=== PATIENT | male | born 1935 | race Caucasian/White ===

== ENCOUNTER 2021-07-13 10:41 | Outpatient (CLI) | payer MEDICARE | END 2021-07-13 10:42 | disposition home or self-care (01) | LOC: MRI 10:41 | PROVIDERS: ATTEND Registered Nurse | DX: M25.552 Pain in left hip (principal); S73.192A Other sprain of left hip, initial encounter; M67.854 Other specified disorders of tendon, left hip; M71.85 Other specified bursopathies, hip; S76.012A Strain of muscle, fascia and tendon of left hip, initial encounter; M85.652 Other cyst of bone, left thigh ==

== ENCOUNTER 2021-10-24 09:11 | Outpatient (CLI) | payer MEDICARE ==
[2021-10-24 10:26] LABS: Hemoglobin 13.2 g/dL (13.5-17.5); Mean Corpuscular HGB CONC 32.5 g/dL (32.0-36.0); Mean Corpuscular Hemoglobin 29.3 pg (27.0-33.0); Mean Corpuscular Volume 90.2 fl (81.2-95.1); Mean Platelet Volume 10.8 fl (7.4-10.4); Platelet Count 194 10x3/uL (150-450)
[2021-10-24 11:04] LABS: Anion Gap 15 mmol/L (10-20); BUN (Urea Nitrogen) 35 mg/dL (8.4-25.7); Calc. Creatinine Clearance 0 mL/min (70-130); Calcium 9.5 mg/dL (7.8-10.44); Carbon Dioxide 23 mmol/L (23-31); Chloride 105 mmol/L (98-107); Estimated GFR 48; Glucose 113 mg/dL (83-110); Potassium 4.3 mmol/L (3.5-5.1); Sodium 139 mmol/L (136-145)
== END 2021-10-24 09:12 | disposition home or self-care (01) ==
LOC: LABBT 09:11
PROVIDERS: ATTEND Neurological Surgery
DX: Z01.818 Encounter for other preprocedural examination (principal); Z20.822 Contact with and (suspected) exposure to COVID-19
CPT/HCPCS: 80048; 85027; 87811; 93005; 93010

== ENCOUNTER 2021-10-29 07:47 | Observation (INO) | payer MEDICARE ==
[2021-10-29] MEDS ORDERED: fentaNYL Citrate/PF 100 MCG/2 ML SYRINGE ONE (11:31)
[2021-10-29] MEDS ORDERED: Acetaminophen 325 MG TAB ONE (11:34)
[2021-10-29] MEDS ORDERED: CEFAZOLIN 2 GM VIAL ONE (11:34)
[2021-10-29] MEDS ORDERED: Sodium Chloride 0.9% 100 ML ONE (11:34)
[2021-10-29] MEDS ORDERED: Lidocaine 1% MPF 2 ML VIAL ONE (11:48)
[2021-10-29] MEDS ORDERED: Rocuronium Bromide 10 MG/ML (10ML VIAL) ONE (11:48)
[2021-10-29] MEDS ORDERED: Dexamethasone 20 MG/5 ML VIAL ONE (11:48)
[2021-10-29] MEDS ORDERED: NEOSTIGMINE 3 MG/3 ML SYR 3 MG/3 ML SYRINGE ONE (11:48)
[2021-10-29] MEDS ORDERED: Glycopyrrolate 0.2 MG/ML 5 ML SYRINGE ONE (11:48)
[2021-10-29] MEDS ORDERED: PROPOFOL 200 MG/20 ML VIAL ONE (11:48)
[2021-10-29] MEDS ORDERED: Ondansetron PF 4 MG/2 ML Vial IVP PRN (11:59)
[2021-10-29] MEDS ORDERED: Milk Of Magnesia 30 ML UDCUP PO PRN (11:59)
[2021-10-29] MEDS ORDERED: Mag-Al 1200 mg/1200 mg/30 ML UDCUP PO PRN (11:59)
[2021-10-29] MEDS ORDERED: Morphine 2 MG/ML VIAL SLOW IVP PRN (11:59)
[2021-10-29] MEDS ORDERED: diphenhydrAMINE 25 MG CAP PO PRN (11:59)
[2021-10-29] MEDS ORDERED: Acetaminophen 325 MG TAB PO PRN (11:59)
[2021-10-29] MEDS ORDERED: Acetaminophen/Codeine 30-300mg Tablet PO PRN ×2 (11:59)
[2021-10-29] MEDS ORDERED: Cyclobenzaprine 10 MG TAB PO PRN (11:59)
[2021-10-29] MEDS ORDERED: Promethazine 25 MG TAB PO PRN (11:59)
[2021-10-29] MEDS ORDERED: Promethazine HCl 25 MG/ML VIAL IM PRN (13:19)
[2021-10-29] MEDS ORDERED: Promethazine HCl 25 MG/ML VIAL IVPB PRN (13:19)
[2021-10-29] MEDS ORDERED: Ondansetron HCl/PF 4 MG/2 ML Vial IVP PRN (13:19)
[2021-10-29 14:56] VITALS: BMI 23.3
[2021-10-29] MEDS: Sodium Chloride 0.9% 1,000 ML IV SCH (15:21)
[2021-10-29] MEDS ORDERED: CEFAZOLIN 2 GM in Sodium Chloride 0.9% 100 ML IVPB SCH (18:00)
[2021-10-29] MEDS: CEFAZOLIN 2 GM in Sodium Chloride 0.9% 100 ML IVPB SCH (20:36)
[2021-10-30] MEDS: CEFAZOLIN 2 GM in Sodium Chloride 0.9% 100 ML IVPB SCH ×3 (05:18→19:58)
[2021-10-30] MEDS: Tamsulosin HCl 0.4 MG CAP PO SCH (05:19)
[2021-10-30] MEDS: Sodium Chloride 0.9% 1,000 ML IV SCH ×2 (05:19→20:01)
[2021-10-30] MEDS: Amlodipine 10 MG TAB PO SCH (10:44)
[2021-10-30] MEDS: Losartan/Hydrochlorothiazide 100 mg/25 mg Tablet PO SCH (10:44)
[2021-10-31] MEDS: CEFAZOLIN 2 GM in Sodium Chloride 0.9% 100 ML IVPB SCH ×2 (04:42→11:17)
[2021-10-31] MEDS: Sodium Chloride 0.9% 1,000 ML IV SCH (04:47)
[2021-10-31] MEDS: Tamsulosin HCl 0.4 MG CAP PO SCH (04:47)
[2021-10-31] MEDS: Losartan/Hydrochlorothiazide 100 mg/25 mg Tablet PO SCH (09:10)
[2021-10-31] MEDS: Amlodipine 10 MG TAB PO SCH (09:10)
[2021-10-31 11:29] VITALS: BP 130/67; TEMP 98.1
== END 2021-10-31 13:44 | disposition home or self-care (01) ==
LOC: SDC 07:47 → T4-B 12:02
PROVIDERS: ADMIT Neurological Surgery; ATTEND Neurological Surgery
PROC: 01NB0ZZ Release Lumbar Nerve, Open Approach (ICD-10-PCS; principal; 2021-10-29)
DX: M48.062 Spinal stenosis, lumbar region with neurogenic claudication (principal); I10 Essential (primary) hypertension; E78.5 Hyperlipidemia, unspecified; Z79.1 Long term (current) use of non-steroidal anti-inflammatories (NSAID); Z79.82 Long term (current) use of aspirin; Z79.899 Other long term (current) drug therapy
CPT/HCPCS: 63047; 63048; 76000; 97116; C1713; J0690; J1100; J2704; J3370; J3490; J7050

== ENCOUNTER 2021-12-25 12:32 | Outpatient (CLI) | payer MEDICARE ==
[~2021-12-25 12:32] MED LIST: Magnevist 469MG/ML 20 ML VIAL ONE
== END 2021-12-25 12:33 | disposition home or self-care (01) ==
LOC: TBSIIMAG 12:32
PROVIDERS: ATTEND Registered Nurse
DX: N28.1 Cyst of kidney, acquired (principal); N32.89 Other specified disorders of bladder; K76.89 Other specified diseases of liver
CPT/HCPCS: 74183; A9579

== ENCOUNTER 2022-01-09 13:33 | Outpatient (CLI) | payer MEDICARE | END 2022-01-09 13:34 | disposition home or self-care (01) | LOC: TBSIIMAG 13:33 | PROVIDERS: ATTEND Neurological Surgery | DX: M25.572 Pain in left ankle and joints of left foot (principal); M25.872 Other specified joint disorders, left ankle and foot ==

== ENCOUNTER 2022-06-01 20:02 | Inpatient (IN) | payer MEDICARE ==
[2022-06-01] MEDS ORDERED: Cefepime 2 GM VIAL ONE (20:35)
[2022-06-01 21:22] LABS: Hemoglobin 10.1 g/dL (14.0-18.0); Mean Corpuscular Hemoglobin 29.4 pg (27.0-31.0); Mean Corpuscular Volume 84.1 fl (78.0-98.0); Mean Platelet Volume 7.4 fL (7.4-10.4); Platelet Count 330 10x3/uL (130-400); RBC Distribution Width 13.4 % (11.5-14.5); Red Blood Cell (RBC) Count 3.43 mill/uL (4.70-6.10); White Blood Cell (WBC) Count 20.1 10x3/uL (4.8-10.8)
[2022-06-01 21:23] LABS: Bacteria/HPF None Seen HPF (None Seen); Bilirubin Negative (Negative); Blood, Urine 3+ (Negative); Clarity Extra Turbid (Clear); Glucose, Urine (Dipstick) Normal (Negative); Ketone, Urine Negative (Negative); Leukocyte 500 Leu/uL (Negative); Nitrite Negative (Negative); Protein, Urine (Dipstick) 70 mg/dL (Neg-Trace); RBC/HPF Greater than 50 HPF (0-3); Specific Gravity, Urine 1.013 (1.002-1.036); Squamous Epithelial 0-3 HPF (0-3); Urobilinogen Normal mg/dL (Less than 2); WBC/HPF Greater than 50 HPF (0-3); pH, Urine 5.5 (5.0-9.0)
[2022-06-01 21:34] LABS: ALT (SGPT) 14 U/L (8-55); AST (SGOT) 16 U/L (5-34); Albumin 3.7 g/dL (3.4-4.8); Alkaline Phosphatase 87 U/L (40-110); Anion Gap 18 mmol/L (10-20); BUN (Urea Nitrogen) 52 mg/dL (8.4-25.7); Bilirubin, Total 0.4 mg/dL (0.2-1.2); Calc. Creatinine Clearance 0 mL/min (70-130); Calcium 8.9 mg/dL (7.8-10.44); Carbon Dioxide 21 mmol/L (23-31); Chloride 101 mmol/L (98-107); Estimated GFR 36; Globulin 3.2 g/dL (2.4-3.5); Glucose 118 mg/dL (83-110); Potassium 3.6 mmol/L (3.5-5.1); Protein, Total 6.9 g/dL (5.8-8.1); Sodium 136 mmol/L (136-145)
[2022-06-01 21:44] LABS: Band 2 % (5-11); Lymphocytes 4 % (21-51); MDiff Complete? YES; Monocytes 11 % (0-10); Neutrophil 83 % (42-75)
[2022-06-01] MEDS ORDERED: Ondansetron PF 4 MG/2 ML Vial ONE (23:32)
[2022-06-02] MEDS ORDERED: Ondansetron PF 4 MG/2 ML Vial IVP PRN (00:22)
[2022-06-02 01:34] LABS: #Eosinphils 0.1 thou/uL (0.0-0.7); #Lymphocytes 1.3 thou/uL (1.20-3.40); #Monocytes 1.7 thou/uL (0.11-0.59); #Neutrophils 14.9 thou/uL (1.40-6.50); %Basophils 0.2 % (0.0-1.0); %Eosinophils 0.4 % (0.0-10.0); %Lymphocytes 7.4 % (21.0-51.0); %Monocytes 9.3 % (0.0-10.0); %Neutrophils 82.6 % (42.0-75.0); Hemoglobin 10.5 g/dL (14.0-18.0); Mean Corpuscular HGB CONC 36.2 g/dL (32.0-36.0); Mean Corpuscular Hemoglobin 30.5 pg (27.0-31.0); Mean Corpuscular Volume 84.4 fl (78.0-98.0); Mean Platelet Volume 7.2 fL (7.4-10.4); Platelet Count 319 10x3/uL (130-400); RBC Distribution Width 13.4 % (11.5-14.5); Red Blood Cell (RBC) Count 3.44 mill/uL (4.70-6.10); White Blood Cell (WBC) Count 18.1 10x3/uL (4.8-10.8)
[2022-06-02 01:57] LABS: Troponin I 0.044 ng/mL (< 0.028)
[2022-06-02 02:05] LABS: Anion Gap 16 mmol/L (10-20); BUN (Urea Nitrogen) 44 mg/dL (8.4-25.7); Calc. Creatinine Clearance 0 mL/min (70-130); Calcium 8.8 mg/dL (7.8-10.44); Carbon Dioxide 17 mmol/L (23-31); Chloride 107 mmol/L (98-107); Estimated GFR 45; Glucose 144 mg/dL (83-110); Sodium 137 mmol/L (136-145)
[2022-06-02 03:01] VITALS: BMI 21.4
[2022-06-02] MEDS: cefTRIAXone\\ROCEPHIN 1 GM in Sodium Chloride 0.9% 100 ML IVPB SCH (03:05)
[2022-06-02] MEDS: Sodium Chloride 0.9% 1,000 ML IV SCH ×2 (03:07→16:25)
[2022-06-02 05:00] LABS: #Eosinphils 0.1 thou/uL (0.0-0.7); #Lymphocytes 0.9 thou/uL (1.20-3.40); #Monocytes 1.7 thou/uL (0.11-0.59); #Neutrophils 11.5 thou/uL (1.40-6.50); %Basophils 0.2 % (0.0-1.0); %Eosinophils 0.6 % (0.0-10.0); %Lymphocytes 6.6 % (21.0-51.0); %Monocytes 12.1 % (0.0-10.0); %Neutrophils 80.5 % (42.0-75.0); Hemoglobin 8.9 g/dL (14.0-18.0); Mean Corpuscular Hemoglobin 27.6 pg (27.0-31.0); Mean Corpuscular Volume 83.7 fl (78.0-98.0); Mean Platelet Volume 7.3 fL (7.4-10.4); Platelet Count 297 10x3/uL (130-400); RBC Distribution Width 13.3 % (11.5-14.5); Red Blood Cell (RBC) Count 3.21 mill/uL (4.70-6.10); White Blood Cell (WBC) Count 14.2 10x3/uL (4.8-10.8)
[2022-06-02 05:10] LABS: Anion Gap 12 mmol/L (10-20); BUN (Urea Nitrogen) 45 mg/dL (8.4-25.7); Calc. Creatinine Clearance 33 mL/min (70-130); Calcium 8.4 mg/dL (7.8-10.44); Carbon Dioxide 19 mmol/L (23-31); Chloride 108 mmol/L (98-107); Estimated GFR 47; Glucose 144 mg/dL (83-110); Potassium 3.1 mmol/L (3.5-5.1); Sodium 136 mmol/L (136-145)
[2022-06-02 05:16] LABS: Troponin I 0.058 ng/mL (< 0.028)
[2022-06-02] MEDS ORDERED: Electrolyte Replacement Protocol 1 EACH FS PRN (07:36)
[2022-06-02] MEDS ORDERED: Electrolyte Replacement Protocol FS PRN (08:00)
[2022-06-02] MEDS ORDERED: Potassium Chloride 20 MEQ TAB PO SCH (08:00)
[2022-06-02] MEDS ORDERED: Metoprolol Tartrate 25 MG TAB PO SCH (09:00)
[2022-06-02 12:35] LABS: Potassium 4.1 mmol/L (3.5-5.1)
[2022-06-02 16:22] LABS: Magnesium 1.9 mg/dL (1.6-2.6); Phosphorus 3.3 mg/dL (2.3-4.7)
[2022-06-02] MEDS: Simvastatin 5 MG TAB PO SCH (20:42)
[2022-06-02] MEDS ORDERED: Magnesium 2 GM/50 ML(in water) 2 GM in Premix Bag 1 BAG IVPB SCH (22:00)
[2022-06-03] MEDS: cefTRIAXone\\ROCEPHIN 1 GM in Sodium Chloride 0.9% 100 ML IVPB SCH (00:11)
[2022-06-03 04:51] LABS: #Eosinphils 0.2 thou/uL (0.0-0.7); #Lymphocytes 1.1 thou/uL (1.20-3.40); #Monocytes 1.3 thou/uL (0.11-0.59); #Neutrophils 7.4 thou/uL (1.40-6.50); %Basophils 0.1 % (0.0-1.0); %Eosinophils 1.7 % (0.0-10.0); %Lymphocytes 11.1 % (21.0-51.0); %Monocytes 13.2 % (0.0-10.0); %Neutrophils 73.9 % (42.0-75.0); Hemoglobin 8.5 g/dL (14.0-18.0); Mean Corpuscular HGB CONC 31.7 g/dL (32.0-36.0); Mean Corpuscular Hemoglobin 26.6 pg (27.0-31.0); Mean Platelet Volume 7.4 fL (7.4-10.4); Platelet Count 312 10x3/uL (130-400); RBC Distribution Width 13.3 % (11.5-14.5); Red Blood Cell (RBC) Count 3.18 mill/uL (4.70-6.10)
[2022-06-03 05:07] LABS: ALT (SGPT) 14 U/L (8-55); AST (SGOT) 13 U/L (5-34); Albumin 2.8 g/dL (3.4-4.8); Alkaline Phosphatase 65 U/L (40-110); Anion Gap 13 mmol/L (10-20); BUN (Urea Nitrogen) 30 mg/dL (8.4-25.7); Bilirubin, Total 0.2 mg/dL (0.2-1.2); Calc. Creatinine Clearance 37 mL/min (70-130); Calcium 8.6 mg/dL (7.8-10.44); Carbon Dioxide 21 mmol/L (23-31); Chloride 110 mmol/L (98-107); Estimated GFR 55; Globulin 3.2 g/dL (2.4-3.5); Glucose 105 mg/dL (83-110); Sodium 140 mmol/L (136-145)
[2022-06-03] MEDS: Sodium Chloride 0.9% 1,000 ML IV SCH ×2 (06:26→19:00)
[2022-06-03 08:59] LABS: Troponin I 0.033 ng/mL (< 0.028)
[2022-06-03] MEDS ORDERED: Amlodipine 10 MG TAB PO SCH (09:00)
[2022-06-03] MEDS ORDERED: Losartan/Hydrochlorothiazide 100 mg/25 mg Tablet PO SCH (09:00)
[2022-06-03] MEDS: Apixaban 5 MG TAB PO SCH ×2 (09:01→20:30)
[2022-06-03] MEDS: Simvastatin 5 MG TAB PO SCH (20:30)
[2022-06-04] MEDS: cefTRIAXone\\ROCEPHIN 1 GM in Sodium Chloride 0.9% 100 ML IVPB SCH (00:48)
[2022-06-04 08:07] LABS: #Eosinphils 0.2 thou/uL (0.0-0.7); #Lymphocytes 1.2 thou/uL (1.20-3.40); #Monocytes 0.9 thou/uL (0.11-0.59); #Neutrophils 6.2 thou/uL (1.40-6.50); %Basophils 0.4 % (0.0-1.0); %Eosinophils 2.3 % (0.0-10.0); %Lymphocytes 14.2 % (21.0-51.0); %Monocytes 10.3 % (0.0-10.0); %Neutrophils 72.7 % (42.0-75.0); Hemoglobin 8.4 g/dL (14.0-18.0); Mean Corpuscular HGB CONC 31.7 g/dL (32.0-36.0); Mean Corpuscular Volume 85.1 fl (78.0-98.0); Mean Platelet Volume 6.9 fL (7.4-10.4); Platelet Count 337 10x3/uL (130-400); RBC Distribution Width 13.3 % (11.5-14.5); Red Blood Cell (RBC) Count 3.12 mill/uL (4.70-6.10); White Blood Cell (WBC) Count 8.5 10x3/uL (4.8-10.8)
[2022-06-04 08:34] LABS: ALT (SGPT) 14 U/L (8-55); AST (SGOT) 12 U/L (5-34); Albumin 2.8 g/dL (3.4-4.8); Alkaline Phosphatase 67 U/L (40-110); Anion Gap 12 mmol/L (10-20); BUN (Urea Nitrogen) 19 mg/dL (8.4-25.7); Bilirubin, Total 0.2 mg/dL (0.2-1.2); Calc. Creatinine Clearance 46 mL/min (70-130); Calcium 8.5 mg/dL (7.8-10.44); Carbon Dioxide 20 mmol/L (23-31); Chloride 110 mmol/L (98-107); Estimated GFR 70; Globulin 3.1 g/dL (2.4-3.5); Glucose 94 mg/dL (83-110); Protein, Total 5.9 g/dL (5.8-8.1); Sodium 138 mmol/L (136-145)
[2022-06-04] MEDS: Sodium Chloride 0.9% 1,000 ML IV SCH (10:11)
[2022-06-04] MEDS: Apixaban 5 MG TAB PO SCH ×2 (10:11→20:31)
[2022-06-04 13:49] LABS: Bacteria/HPF 2+ HPF (None Seen); Bilirubin Negative (Negative); Blood, Urine 3+ (Negative); Glucose, Urine (Dipstick) Normal (Negative); Ketone, Urine Negative (Negative); Leukocyte 500 Leu/uL (Negative); Nitrite Negative (Negative); Protein, Urine (Dipstick) 100 mg/dL (Neg-Trace); RBC/HPF Greater than 50 HPF (0-3); Specific Gravity, Urine 1.009 (1.002-1.036); Squamous Epithelial None Seen HPF (0-3); Urobilinogen Normal mg/dL (Less than 2); WBC/HPF Greater than 50 HPF (0-3)
[2022-06-04 13:50] LABS: Clarity Turbid (Clear)
[2022-06-04] MEDS ORDERED: hydrALAZINE 20 MG/ML VIAL SLOW IVP PRN (14:04)
[2022-06-04] MEDS ORDERED: Vancomycin 1 GM in Premix Bag 1 BAG IVPB SCH (15:00)
[2022-06-04] MEDS: Metoprolol Tartrate 25 MG TAB PO SCH (20:31)
[2022-06-04] MEDS: Simvastatin 5 MG TAB PO SCH (20:32)
[2022-06-04] MEDS ORDERED: cefTRIAXone\\ROCEPHIN 1 GM in Sodium Chloride 0.9% 100 ML IVPB SCH (23:59)
[2022-06-05] MEDS: Sodium Chloride 0.9% 1,000 ML IV SCH ×3 (00:30→15:27)
[2022-06-05 04:58] LABS: #Basophils 0.1 thou/uL (0.0-0.2); #Eosinphils 0.3 thou/uL (0.0-0.7); #Lymphocytes 1.3 thou/uL (1.20-3.40); #Monocytes 0.9 thou/uL (0.11-0.59); #Neutrophils 5.7 thou/uL (1.40-6.50); %Basophils 0.7 % (0.0-1.0); %Eosinophils 3.2 % (0.0-10.0); %Lymphocytes 15.3 % (21.0-51.0); %Monocytes 11.2 % (0.0-10.0); %Neutrophils 69.5 % (42.0-75.0); Hemoglobin 8.3 g/dL (14.0-18.0); Mean Corpuscular HGB CONC 32.1 g/dL (32.0-36.0); Mean Corpuscular Hemoglobin 27.2 pg (27.0-31.0); Mean Corpuscular Volume 84.7 fl (78.0-98.0); Mean Platelet Volume 7.1 fL (7.4-10.4); Platelet Count 327 10x3/uL (130-400); RBC Distribution Width 13.5 % (11.5-14.5); Red Blood Cell (RBC) Count 3.03 mill/uL (4.70-6.10); White Blood Cell (WBC) Count 8.2 10x3/uL (4.8-10.8)
[2022-06-05 05:19] LABS: ALT (SGPT) 14 U/L (8-55); AST (SGOT) 14 U/L (5-34); Albumin 2.8 g/dL (3.4-4.8); Alkaline Phosphatase 62 U/L (40-110); Anion Gap 12 mmol/L (10-20); BUN (Urea Nitrogen) 16 mg/dL (8.4-25.7); Bilirubin, Total 0.2 mg/dL (0.2-1.2); Calc. Creatinine Clearance 47 mL/min (70-130); Calcium 8.4 mg/dL (7.8-10.44); Carbon Dioxide 22 mmol/L (23-31); Chloride 110 mmol/L (98-107); Estimated GFR 74; Glucose 96 mg/dL (83-110); Potassium 3.8 mmol/L (3.5-5.1); Protein, Total 5.8 g/dL (5.8-8.1); Sodium 140 mmol/L (136-145)
[2022-06-05] MEDS ORDERED: Amlodipine 10 MG TAB PO SCH (09:00)
[2022-06-05] MEDS: Apixaban 5 MG TAB PO SCH ×2 (10:49→22:16)
[2022-06-05] MEDS: Metoprolol Tartrate 25 MG TAB PO SCH ×2 (10:50→22:16)
[2022-06-05] MEDS ORDERED: Metoprolol Tartrate 25 MG TAB PO SCH ×2 (12:50→13:00)
[2022-06-05] MEDS: AMOXicillin 250 MG CAP PO SCH ×2 (15:07→22:17)
[2022-06-05] MEDS: Simvastatin 5 MG TAB PO SCH (22:16)
[2022-06-06] MEDS: Metoprolol Tartrate 25 MG TAB PO SCH ×2 (08:55→20:47)
[2022-06-06] MEDS: AMOXicillin 250 MG CAP PO SCH ×3 (08:55→20:47)
[2022-06-06] MEDS: Apixaban 5 MG TAB PO SCH ×2 (08:55→20:46)
[2022-06-06] MEDS ORDERED: Bisacodyl 10 MG SUPP PR SCH (11:54)
[2022-06-06] MEDS: Sodium Chloride 0.9% 1,000 ML IV SCH (13:40)
[2022-06-06] MEDS: Simvastatin 5 MG TAB PO SCH (20:47)
[2022-06-07] MEDS: Apixaban 5 MG TAB PO SCH (09:43)
[2022-06-07] MEDS: AMOXicillin 250 MG CAP PO SCH (09:43)
[2022-06-07] MEDS: Metoprolol Tartrate 25 MG TAB PO SCH (09:43)
[2022-06-07 12:33] VITALS: BP 138/61; TEMP 97.8
== END 2022-06-07 13:00 | disposition home or self-care (01) | DRG 872 ==
LOC: ERS 20:02 → 2NO 06-02 02:08
PROVIDERS: ADMIT Hospitalist; ATTEND Internal Medicine
DX: A41.81 Sepsis due to Enterococcus (principal); N30.00 Acute cystitis without hematuria; I48.19 Other persistent atrial fibrillation; N40.0 Benign prostatic hyperplasia without lower urinary tract symptoms; I10 Essential (primary) hypertension; K59.00 Constipation, unspecified; Z79.899 Other long term (current) drug therapy; Z85.46 Personal history of malignant neoplasm of prostate
CPT/HCPCS: 36415; 36416; 51701; 74176; 76705; 80048; 80053; 81003; 81015; 82105; 82378; 83605; 83735; 83880; 84100; 84443; 84484; 85025; 87040; 87086; 93005; 93306; 96365; J0692; J0696; J2405; J3370-JW; J3475; J3490; J7050

== ENCOUNTER 2022-09-05 10:20 | Inpatient (IN) | payer MEDICARE ==
[2022-09-05 10:58] LABS: #Basophils 0.1 thou/uL (0.0-0.2); #Eosinphils 0.1 thou/uL (0.0-0.7); #Monocytes 1.1 thou/uL (0.11-0.59); #Neutrophils 9.9 thou/uL (1.40-6.50); %Basophils 0.4 % (0.0-1.0); %Eosinophils 0.5 % (0.0-10.0); %Lymphocytes 10.8 % (21.0-51.0); %Monocytes 8.7 % (0.0-10.0); %Neutrophils 77.6 % (42.0-75.0); Hemoglobin 8.6 g/dL (14.0-18.0); Mean Corpuscular HGB CONC 31.4 g/dL (32.0-36.0); Mean Corpuscular Hemoglobin 23.8 pg (27.0-31.0); Mean Corpuscular Volume 75.7 fl (78.0-98.0); Mean Platelet Volume 8.4 fL (7.4-10.4); Platelet Count 566 10x3/uL (130-400); RBC Distribution Width 17.4 % (11.5-14.5); Red Blood Cell (RBC) Count 3.62 mill/uL (4.70-6.10); White Blood Cell (WBC) Count 12.8 10x3/uL (4.8-10.8)
[2022-09-05 11:31] LABS: ALT (SGPT) 27 U/L (8-55); AST (SGOT) 25 U/L (5-34); Albumin 3.3 g/dL (3.4-4.8); Alkaline Phosphatase 101 U/L (40-110); Anion Gap 19 mmol/L (10-20); BUN (Urea Nitrogen) 55 mg/dL (8.4-25.7); Bilirubin, Total 0.3 mg/dL (0.2-1.2); Calc. Creatinine Clearance 0 mL/min (70-130); Calcium 9.8 mg/dL (7.8-10.44); Carbon Dioxide 21 mmol/L (23-31); Chloride 100 mmol/L (98-107); Estimated GFR 35; Globulin 4.7 g/dL (2.4-3.5); Glucose 116 mg/dL (83-110); Lipase 24 U/L (8-78); Potassium 4.7 mmol/L (3.5-5.1); Sodium 135 mmol/L (136-145)
[2022-09-05 11:48] LABS: CKMB 2.4 ng/mL (0-6.6)
[2022-09-05] MEDS ORDERED: Morphine 4 MG/ML VIAL ONE (13:25)
[2022-09-05 13:40] LABS: Bacteria/HPF 4+ HPF (None Seen); Bilirubin Negative (Negative); Blood, Urine Trace (Negative); CAUTI Indications for Culture Urological Procedure; Clarity Turbid (Clear); Glucose, Urine (Dipstick) Normal (Negative); Ketone, Urine Negative (Negative); Leukocyte 500 Leu/uL (Negative); Nitrite Negative (Negative); Protein, Urine (Dipstick) 30 mg/dL (Neg-Trace); RBC/HPF 0-3 HPF (0-3); Specific Gravity, Urine 1.016 (1.002-1.036); Squamous Epithelial 0-3 HPF (0-3); Urobilinogen Normal mg/dL (Less than 2); WBC/HPF Greater than 50 HPF (0-3)
[2022-09-05 13:42] LABS: Urine Culture Reflex Yes Yes
[2022-09-05] MEDS ORDERED: Oxymetazoline HCl 0.05% (30 ML BOT) ONE (14:18)
[2022-09-05] MEDS ORDERED: Iopamidol-370 76% 500 ML MDV (1 ML CHARGE) ONE (15:12)
[2022-09-05] MEDS ORDERED: Ondansetron PF 4 MG/2 ML Vial IVP PRN (16:22)
[2022-09-05] MEDS ORDERED: Acetaminophen 325 MG TAB PO PRN (16:22)
[2022-09-05 16:46] LABS: Troponin I 0.014 ng/mL (< 0.028)
[2022-09-05] MEDS: cefTRIAXone\\ROCEPHIN 1 GM in Sodium Chloride 0.9% 100 ML IVPB SCH (19:19)
[2022-09-05] MEDS: Sodium Chloride 0.9% 1,000 ML IV SCH (19:20)
[2022-09-05 19:39] LABS: Troponin I 0.036 ng/mL (< 0.028)
[2022-09-05] MEDS: Fish Oil 1,000 MG CAP PO SCH (20:29)
[2022-09-05] MEDS: Simvastatin 5 MG TAB PO SCH (20:29)
[2022-09-05 23:51] LABS: Troponin I 0.043 ng/mL (< 0.028)
[2022-09-06 04:46] LABS: #Eosinphils 0.1 thou/uL (0.0-0.7); #Monocytes 1.2 thou/uL (0.11-0.59); #Neutrophils 9.2 thou/uL (1.40-6.50); %Basophils 0.3 % (0.0-1.0); %Eosinophils 0.9 % (0.0-10.0); %Lymphocytes 7.8 % (21.0-51.0); %Monocytes 10.2 % (0.0-10.0); %Neutrophils 79.5 % (42.0-75.0); Hemoglobin 7.5 g/dL (14.0-18.0); Mean Corpuscular HGB CONC 30.1 g/dL (32.0-36.0); Mean Corpuscular Hemoglobin 23.4 pg (27.0-31.0); Mean Corpuscular Volume 77.8 fl (78.0-98.0); Mean Platelet Volume 8.4 fL (7.4-10.4); Platelet Count 469 10x3/uL (130-400); RBC Distribution Width 17.7 % (11.5-14.5); White Blood Cell (WBC) Count 11.6 10x3/uL (4.8-10.8)
[2022-09-06 05:13] LABS: ALT (SGPT) 18 U/L (8-55); AST (SGOT) 16 U/L (5-34); Albumin 2.7 g/dL (3.4-4.8); Alkaline Phosphatase 80 U/L (40-110); Anion Gap 12 mmol/L (10-20); BUN (Urea Nitrogen) 38 mg/dL (8.4-25.7); Bilirubin, Total 0.2 mg/dL (0.2-1.2); Calc. Creatinine Clearance 0 mL/min (70-130); Calcium 8.9 mg/dL (7.8-10.44); Carbon Dioxide 22 mmol/L (23-31); Cardiac Risk 4.5 (Less than 4.5); Chloride 106 mmol/L (98-107); Cholesterol 113 mg/dl (< 200 Desired); Estimated GFR 56; Globulin 3.8 g/dL (2.4-3.5); Glucose 107 mg/dL (83-110); HDL Cholesterol 25 mg/dL (>60 Neg Risk); LDL Cholesterol, Calculated 72 mg/dL; Potassium 4.5 mmol/L (3.5-5.1); Protein, Total 6.5 g/dL (5.8-8.1); Sodium 135 mmol/L (136-145); Triglycerides 79 mg/dL (Less than 150)
[2022-09-06 05:18] LABS: Troponin I 0.036 ng/mL (< 0.028)
[2022-09-06 05:33] LABS: Free T4 (Free Thyroxine) 1.18 ng/dL (0.70-1.48); Thyroid Stimulating Hormone 0.8255 uIU/mL (0.35-4.94)
[2022-09-06] MEDS: Sodium Chloride 0.9% 1,000 ML IV SCH ×2 (06:44→23:27)
[2022-09-06] MEDS ORDERED: Amlodipine 10 MG TAB PO SCH (09:00)
[2022-09-06] MEDS: Aspirin 81 mg Enteric Coated Tablet PO SCH (09:06)
[2022-09-06] MEDS: Fish Oil 1,000 MG CAP PO SCH ×2 (09:08→19:49)
[2022-09-06] MEDS: Cholecalciferol 1,000 UNITS (25 MCG) TAB PO SCH (09:08)
[2022-09-06] MEDS ORDERED: Vasopressin 20 UNITS/ML VIAL ONE (11:45)
[2022-09-06] MEDS ORDERED: PROPOFOL 200 MG/20 ML VIAL ONE (12:01)
[2022-09-06] MEDS ORDERED: PHENYLEPHRINE-NS 100 MCG/ML 10 ML SYRINGE ONE (12:01)
[2022-09-06] MEDS ORDERED: Lidocaine 1% PF 5 ML VIAL ONE (12:01)
[2022-09-06 13:46] LABS: Iron 16 ug/dL (65-175); Iron Binding Capacity, Total 176 mcg/dL (261-462)
[2022-09-06] MEDS: cefTRIAXone\\ROCEPHIN 1 GM in Sodium Chloride 0.9% 100 ML IVPB SCH (16:24)
[2022-09-06] MEDS: Amlodipine 5 MG TAB PO SCH (19:48)
[2022-09-06] MEDS: Simvastatin 5 MG TAB PO SCH (19:49)
[2022-09-07 04:18] LABS: #Eosinphils 0.2 thou/uL (0.0-0.7); #Monocytes 0.9 thou/uL (0.11-0.59); #Neutrophils 6.2 thou/uL (1.40-6.50); %Basophils 0.4 % (0.0-1.0); %Eosinophils 1.9 % (0.0-10.0); %Lymphocytes 16.3 % (21.0-51.0); %Monocytes 10.6 % (0.0-10.0); %Neutrophils 69.5 % (42.0-75.0); Hemoglobin 7.3 g/dL (14.0-18.0); Mean Corpuscular Hemoglobin 23.3 pg (27.0-31.0); Mean Corpuscular Volume 77.6 fl (78.0-98.0); Mean Platelet Volume 8.1 fL (7.4-10.4); Platelet Count 398 10x3/uL (130-400); RBC Distribution Width 17.5 % (11.5-14.5); Red Blood Cell (RBC) Count 3.13 mill/uL (4.70-6.10); White Blood Cell (WBC) Count 8.9 10x3/uL (4.8-10.8)
[2022-09-07 04:53] LABS: ALT (SGPT) 16 U/L (8-55); AST (SGOT) 13 U/L (5-34); Albumin 2.7 g/dL (3.4-4.8); Alkaline Phosphatase 77 U/L (40-110); Anion Gap 10 mmol/L (10-20); BUN (Urea Nitrogen) 22 mg/dL (8.4-25.7); Bilirubin, Total 0.2 mg/dL (0.2-1.2); Calc. Creatinine Clearance 39 mL/min (70-130); Calcium 8.8 mg/dL (7.8-10.44); Carbon Dioxide 24 mmol/L (23-31); Chloride 108 mmol/L (98-107); Estimated GFR 64; Globulin 3.7 g/dL (2.4-3.5); Glucose 95 mg/dL (83-110); Potassium 4.4 mmol/L (3.5-5.1); Protein, Total 6.4 g/dL (5.8-8.1); Sodium 138 mmol/L (136-145)
[2022-09-07] MEDS: Aspirin 81 mg Enteric Coated Tablet PO SCH (08:01)
[2022-09-07] MEDS: Sodium Chloride 0.9% 1,000 ML IV SCH (08:01)
[2022-09-07] MEDS: Cholecalciferol 1,000 UNITS (25 MCG) TAB PO SCH (08:02)
[2022-09-07] MEDS: Fish Oil 1,000 MG CAP PO SCH ×2 (08:02→20:20)
[2022-09-07] MEDS ORDERED: IRON SUCROSE COMPLEX 100 MG/5 ML SLOW IVP SCH (08:30)
[2022-09-07] MEDS ORDERED: Sodium Ferric Gluconate 62.5 MG/5 ML AMP SLOW IVP SCH (09:15)
[2022-09-07] MEDS: Docusate 100 MG CAP PO SCH ×2 (11:14→20:20)
[2022-09-07] MEDS: Ciprofloxacin 500 MG TAB PO SCH (20:19)
[2022-09-07] MEDS: Simvastatin 5 MG TAB PO SCH (20:19)
[2022-09-07] MEDS: Amlodipine 5 MG TAB PO SCH (20:19)
[2022-09-08 04:39] LABS: Hemoglobin 7.3 g/dL (14.0-18.0); Mean Corpuscular HGB CONC 30.3 g/dL (32.0-36.0); Mean Corpuscular Hemoglobin 23.6 pg (27.0-31.0); Mean Platelet Volume 8.4 fL (7.4-10.4); Platelet Count 414 10x3/uL (130-400); RBC Distribution Width 17.6 % (11.5-14.5); Red Blood Cell (RBC) Count 3.09 mill/uL (4.70-6.10)
[2022-09-08] MEDS: Ciprofloxacin 500 MG TAB PO SCH (05:57)
[2022-09-08] MEDS ORDERED: Ferrous Gluconate 324 MG TAB PO SCH (08:00)
[2022-09-08] MEDS: Aspirin 81 mg Enteric Coated Tablet PO SCH (08:33)
[2022-09-08] MEDS: Cholecalciferol 1,000 UNITS (25 MCG) TAB PO SCH (08:33)
[2022-09-08] MEDS: Docusate 100 MG CAP PO SCH (08:33)
[2022-09-08] MEDS: Fish Oil 1,000 MG CAP PO SCH (08:34)
[2022-09-08 11:09] VITALS: BP 116/60; TEMP 97.8
== END 2022-09-08 12:05 | disposition home or self-care (01) | DRG 391 ==
LOC: ERS 10:20 → 2SW 17:25 → OBSVTOIN 09-06 07:58
PROVIDERS: ADMIT Internal Medicine Geriatric Medicine; ATTEND Family Medicine
PROC: 0DB98ZX Excision of Duodenum, Via Natural or Artificial Opening Endoscopic, Diagnostic (ICD-10-PCS; principal; 2022-09-06)
PROC: 0DB38ZX Excision of Lower Esophagus, Via Natural or Artificial Opening Endoscopic, Diagnostic (ICD-10-PCS; 2022-09-06)
PROC: 0D718ZZ Dilation of Upper Esophagus, Via Natural or Artificial Opening Endoscopic (ICD-10-PCS; 2022-09-06)
DX: R13.14 Dysphagia, pharyngoesophageal phase (principal); I21.A1 Myocardial infarction type 2; E44.0 Moderate protein-calorie malnutrition; N17.9 Acute kidney failure, unspecified; Z68.1 Body mass index [BMI] 19.9 or less, adult; E87.1 Hypo-osmolality and hyponatremia; N30.00 Acute cystitis without hematuria; E04.2 Nontoxic multinodular goiter; N40.0 Benign prostatic hyperplasia without lower urinary tract symptoms; I10 Essential (primary) hypertension; R77.8 Other specified abnormalities of plasma proteins; R63.4 Abnormal weight loss; R63.0 Anorexia; D50.9 Iron deficiency anemia, unspecified; N28.89 Other specified disorders of kidney and ureter; F41.9 Anxiety disorder, unspecified; B95.2 Enterococcus as the cause of diseases classified elsewhere; F32.9 Major depressive disorder, single episode, unspecified; I45.10 Unspecified right bundle-branch block; I95.9 Hypotension, unspecified; N28.1 Cyst of kidney, acquired; I48.0 Paroxysmal atrial fibrillation; E78.00 Pure hypercholesterolemia, unspecified; F10.90 Alcohol use, unspecified, uncomplicated; Z79.01 Long term (current) use of anticoagulants; Z98.890 Other specified postprocedural states; Z79.82 Long term (current) use of aspirin; Z79.899 Other long term (current) drug therapy; Z87.891 Personal history of nicotine dependence; Z85.46 Personal history of malignant neoplasm of prostate; Z85.51 Personal history of malignant neoplasm of bladder; Z80.0 Family history of malignant neoplasm of digestive organs
CPT/HCPCS: 36415; 70491; 71045; 74177; 80053; 80061; 81001; 82553; 82728; 83540; 83550; 83690; 83880; 84439; 84443; 84481; 84484; 85025; 85027; 87077; 87086; 87186; 88305; 93005; 94760; 96374; G0378; J0696; J2270; J2704; J2916; J3490; J7050; Q9967